=== PATIENT | male | born 1995 | race Two or more races ===

== ENCOUNTER 2016-12-12 22:21 | Emergency (ER) | payer MEDICAID, OTHER ==
[~2016-12-12] VITALS: Ht 175.3 cm; Wt 85.6 kg
[2016-12-12 22:24] VITALS: BP 120/80
== END 2016-12-12 23:52 | disposition home or self-care (01) ==
LOC: ED 22:32
DX: J20.8 Acute bronchitis due to other specified organisms (principal); J00 Acute nasopharyngitis [common cold]
CPT/HCPCS: 71020; 99284